=== PATIENT | female | born 1965 | race Caucasian/White ===

== ENCOUNTER → 2020-03-16 10:25 | Outpatient (CLI) | payer BC | END | disposition home or self-care (01) | LOC: D.RAD 10:25 | PROVIDERS: ATTEND Nurse Practitioner Family | DX: M25.511 Pain in right shoulder (principal) ==

== ENCOUNTER 2020-08-26 13:14 | Emergency (ER) | payer BC ==
[~2020-08-26] VITALS: Ht 170.2 cm; Wt 118.2 kg
[~2020-08-26 13:14] MED LIST: LISINOPRIL10 MG PO; LOVENOX40 MG/0.4 SC; NORMODYNE / TR100 MG PO; NORVASC10 MG PO
[2020-08-26 13:17] VITALS: BP 132/71; Ht 170.2 cm; Wt 118.2 kg
[2020-08-26 13:57] LABS: BASOPHILS 0.6 % (0-2); EOSINOPHILS 5.5 % (0-7); HEMATOCRIT 38.6 % (36.0-48.0); HEMOGLOBIN 12.2 g/dL (12-16); IMMATURE GRANULOCYTES 0.5 % (0-5); LYMPHOCYTE ABS# 2.95 10x3/uL (1.18-3.74); MCH 29.8 pg (26.0-34.0); MCHC 31.6 g/dL (31.0-37.0); MCV 94.4 fL (80.0-100.0); MEAN PLATELET VOLUME 9.2 fL (7.4-10.4); MONOCYTES 7.6 % (2-11); NEUTROPHIL ABS# 9.08 10x3/uL (1.56-6.13); NEUTROPHILS 64.8 % (40-80); PLATELET COUNT 536 10x3/uL (130-400); RBC 4.09 10x6/uL (4.00-5.40); RDW 15.2 % (11.5-14.5)
[2020-08-26 14:06] LABS: CALC OSMOLALITY 278 mosm/kg (275-300); CALCIUM 10.5 mg/dL (8.5-10.1); CARBON DIOXIDE 27.4 mmol/L (21.0-32.0); CHLORIDE - SERUM 97 mmol/L (98-107); CREATININE - SERUM 0.7 mg/dL (0.6-1.3); GLUCOSE 153 mg/dL (74-106); POTASSIUM - SERUM 3.9 mmol/L (3.5-5.1); SODIUM 131 mmol/L (136-145); UREA NITROGEN 50 mg/dL (7-18); eGFR NON AFRICAN AMERICAN > 90 mL/min (90-120)
[2020-08-26 14:13] LABS: ALKALINE PHOSPHATASE 117 U/L (30-120); ALT (SGPT) 23 U/L (10-68); BILIRUBIN - TOTAL 0.29 mg/dL (0.2-1.3); PROTEIN - SERUM 7.6 g/dL (6.4-8.2)
[2020-08-26 19:39] LABS: BILIRUBIN NEGATIVE (NEGATIVE); KETONE NEGATIVE (NEGATIVE); NITRITE POSITIVE (NEGATIVE); UROBILINOGEN NORMAL mg/dL (< 2)
[2020-08-26 19:44] LABS: BACTERIA MANY HPF (NONE SEEN); SQUAMOUS EPITHELIAL 0-5 HPF (0-4); WHITE CELLS - URINE NONE SEEN HPF (0-4)
[2020-08-27] MEDS ORDERED: NORMODYNE / TR100 MG PEG (15:27)
[2020-08-27] MEDS ORDERED: HYDRALAZINE HC100 MG PEG (15:28)
[2020-08-27] MEDS ORDERED: LISINOPRIL10 MG PEG (15:28)
[2020-08-27] MEDS ORDERED: NORVASC10 MG (15:28)
[2020-08-27] MEDS ORDERED: XANAX0.5 MG PO (15:29)
[2020-08-27] MEDS ORDERED: GLUCOPHAGE500 MG PO (19:08)
[2020-08-27] MEDS ORDERED: HCTZ25 MG PO (19:11)
[2020-08-27] MEDS ORDERED: ZOFRAN4 MG PO (19:13)
[2020-08-27] MEDS ORDERED: NYSTATIN1 PWD TOPICAL (19:16)
[2020-08-27] MEDS ORDERED: TRAZODONE HCL50 MG PO (19:19)
== END 2020-08-26 19:33 | disposition home or self-care (01) ==
LOC: D.ER 13:14
PROVIDERS: Family Medicine
DX: L89.159 Pressure ulcer of sacral region, unspecified stage (principal); E11.9 Type 2 diabetes mellitus without complications; I50.9 Heart failure, unspecified; Z86.73 Personal history of transient ischemic attack (TIA), and cerebral infarction without residual deficits; M54.9 Dorsalgia, unspecified

== ENCOUNTER 2020-08-27 15:08 | Inpatient (IN) | payer BC ==
[~2020-08-27] VITALS: Ht 170.2 cm; Wt 107.5 kg
[2020-08-27] MEDS ORDERED: NORMODYNE / TR100 MG PEG (15:27)
[2020-08-27] MEDS ORDERED: LISINOPRIL10 MG PEG (15:28)
[2020-08-27] MEDS ORDERED: NORVASC10 MG (15:28)
[2020-08-27] MEDS ORDERED: HYDRALAZINE HC100 MG PEG (15:28)
[2020-08-27] MEDS ORDERED: XANAX0.5 MG PO (15:29)
[2020-08-27 15:43] LABS: BASOPHILS 0.3 % (0-2); EOSINOPHILS 3.1 % (0-7); HEMATOCRIT 41.7 % (36.0-48.0); HEMOGLOBIN 13.3 g/dL (12-16); IMMATURE GRANULOCYTES 0.3 % (0-5); LYMPHOCYTE ABS# 1.67 10x3/uL (1.18-3.74); LYMPHOCYTES 12.1 % (15-50); MCH 29.8 pg (26.0-34.0); MCHC 31.9 g/dL (31.0-37.0); MCV 93.5 fL (80.0-100.0); MEAN PLATELET VOLUME 9.1 fL (7.4-10.4); MONOCYTES 7.8 % (2-11); NEUTROPHIL ABS# 10.51 10x3/uL (1.56-6.13); NEUTROPHILS 76.4 % (40-80); PLATELET COUNT 565 10x3/uL (130-400); RBC 4.46 10x6/uL (4.00-5.40); RDW 15.1 % (11.5-14.5); WBC 13.8 10x3/uL (4.8-10.8)
[2020-08-27 15:49] LABS: ANION GAP 15.7 mmol/L (8-16); CALCIUM 10.5 mg/dL (8.5-10.1); CARBON DIOXIDE 26.1 mmol/L (21.0-32.0); CREATININE - SERUM 0.9 mg/dL (0.6-1.3); POTASSIUM - SERUM 3.8 mmol/L (3.5-5.1)
[2020-08-27 15:55] LABS: ALBUMIN 3.2 g/dL (3.4-5.0); BILIRUBIN - TOTAL 0.31 mg/dL (0.2-1.3); PROTEIN - SERUM 8.2 g/dL (6.4-8.2)
[2020-08-27 16:00] VITALS: BP 149/93
--- NOTE | 2020-08-27 16:00 | NUR ---
PT LYING IN BED MOANING AND CRYING IN PAIN. UPON VISUAL EXAM OF VAGINAL AREA, PT WAS NOTED TO HAVE YEAST-LIKE SUBSTANCE SURROUNDING HER VAGINA. PT STATED IT HAD BEEN AT LEAST TWO WEEKS SINCE THE NH SHE WAS DC'D FROM HAD PROVIDED PERICARE. PT'S LABIA AND URETHRA WERE A DEEP RED/INFLAMMED COLOR. PT C/O PAIN WITH LIGHT PALPATION. ER PROVIDER NOTIFIED. PT CAME IN WITH PABLO CATHETER IN PLACE. REMOVED PER ER PROVIDER ORDER AND REPLACED WITH 16 FR USING STERILE TECHNIQUE. PT WAS LEAKING AROUND THE CATHETER AFTER INFLATING WITH 10ML STERILE SALINE, NOTIFIED ER PROVIDER. VERBAL ORDER TO PLACE ADDITIONAL 10ML SALINE IN BALLOON. PT TOLERATED WELL AND STATED HER PAIN WAS BETTER AFTER ADDITIONAL SALINE WAS PLACED. URINE WAS YELLOW WITH A SIGNIFICANT AMOUNT OF SEDIMENT NOTED.
[2020-08-27 16:21] VITALS: BP 156/94
[2020-08-27 16:50] LABS: NITRITE POSITIVE (NEGATIVE)
[2020-08-27 16:51] LABS: BILIRUBIN NEGATIVE (NEGATIVE); KETONE NEGATIVE (NEGATIVE); UROBILINOGEN NORMAL mg/dL (< 2)
[2020-08-27 16:52] LABS: BACTERIA MANY HPF (NONE SEEN); SQUAMOUS EPITHELIAL OCC HPF (0-4)
--- NOTE | 2020-08-27 18:33 | NUR ---
PATIENT TO UNIT VIA BED AT THIS TIME. BED LOW POSITION, CALL LIGHT IN REACH. FREE FROM SIGNS OF DISTRESS, WILL CONTINUE TO MONITOR.
[2020-08-27] MEDS ORDERED: GLUCOPHAGE500 MG PO (19:08)
[2020-08-27] MEDS ORDERED: HCTZ25 MG PO (19:11)
[2020-08-27] MEDS ORDERED: ZOFRAN4 MG PO (19:13)
[2020-08-27] MEDS ORDERED: NYSTATIN1 PWD TOPICAL (19:16)
[2020-08-27] MEDS ORDERED: TRAZODONE HCL50 MG PO (19:19)
[2020-08-27 19:51] VITALS: BP 121/73
[2020-08-27 23:12] VITALS: BMI 37.2
--- NOTE | 2020-08-28 01:23 | NUR ---
pT ARRIVED TO UNIT JUST BEFORE THIS NURSE ARRIVED. PT IS A&O x4 AND C/O PAIN ON ROUNDING/REPORT. PRN MS WAS ADMINISTERED BE ORDER. PT HAS A PEG TUBE THAT IS PATENT AND HAS NO RESIDUAL. AUSCULTATED ABD FOR APPROPRIATE PLACEMENT AND SAME WAS VERIFIED BEFORE MEDICATION ADMINISTRATION. PT REQUIRES THICKENED LIQUIDS. DRESSING CHANGED TO WOUND ON RIGHT COCCYX THAT RESEMBLES MOISTURE ASSOCIATED SKIN BREAKDOWN. PTS SPOUSE IN ROOM AND ASSISTED WITH REVIEW OF MEDICATION. SCD'S AND TELE APPLIED PER ORDER. PT REQUESTING TO BE TURNED FROM AFFECTED SIDE EVERY 2 HOURS AND UNAFFECTED SIDE EVERY 1.5 HOURS. PT EDUCATION REGARDING WOUND CARE AND PROPER TURNING AND POSITIONING SCHEDULE. PT'S COLOSTOMY BAG HAD LOST THE CLIP APPLIANCE AND FLOOR SUPPLY WAS USED TO CHANGE SAME. PT C/O PAIN TO LT HAND IV AFTER MANIPULATING CELL PHONE AND MULTIPLE REACHING TASKS FOR BEDSIDE TABLE. PT IS UNABLE TO STAND AT ALL AND IS A TOTAL ASSIST. PABLO IS PATENT AND PT CONTINUED TO C/O "BLADDER SPASMS" WITH A YEAST SMELLING/LOOKING SUBSTANCE PUSHED OUT AROUND THE CATH WITH NURSE PRESENT AND DURING COMPLAINT. PT DOES C/O PAIN FREQUENTLY EVEN FOR SLIGHT MOVEMENTS AND OFTEN HOLLERS OUT OR MOANS FOR SAME. SPOUSE DID BRING IN PT CPAP SHE NEEDS THIS FOR "MOUTH BREATHING". [facility] HAVE CALLED WITH PASSCODE TO PT AND REQUESTING INFORMATION SINCE THE SHIFT BEGAN. CASKET COVERER UP TO VISIT PT IN ROOM THIS EVENING WELL. PT HAS BEEN TURNED AND REPOSITIONED X5 SINCE START OF SHIFT WITH MULTIPLE READJUSTMENTS WELL. PRN PYRIDIUM GIVEN AND EFF FOR RELIEF OF BLADDER SPASMS WITH NO FURTHER EPISODES OF YEAST AROUND THE CATH. PT'S PERIANAL AREA IS EXCORIATED AND SLIGHTLY "SHEERED" APPEARING. PT IS SETTLED AND RESTING IN BED AT THIS TIME.
[2020-08-28 01:38] LABS: CKMB 0.4 U/L (0.0-3.6); CREATINE KINASE 27 UL (21-215); TROPONIN-I < 0.017 ng/mL (0.000-0.060)
[2020-08-28 01:39] LABS: APTT 35.4 SECONDS (22.8-39.4); INR 1.14 (0.85-1.17); PROTIME 13.5 SECONDS (11.6-15.0)
[2020-08-28 04:44] VITALS: BP 134/65
[2020-08-28 05:04] LABS: BASOPHILS 0.6 % (0-2); EOSINOPHILS 5.5 % (0-7); HEMATOCRIT 37.8 % (36.0-48.0); HEMOGLOBIN 12.1 g/dL (12-16); IMMATURE GRANULOCYTES 0.3 % (0-5); LYMPHOCYTES 19.1 % (15-50); MCV 93.6 fL (80.0-100.0); MEAN PLATELET VOLUME 9.3 fL (7.4-10.4); MONOCYTES 6.8 % (2-11); NEUTROPHIL ABS# 8.52 10x3/uL (1.56-6.13); NEUTROPHILS 67.7 % (40-80); PLATELET COUNT 505 10x3/uL (130-400); RBC 4.04 10x6/uL (4.00-5.40); RDW 15.5 % (11.5-14.5); WBC 12.6 10x3/uL (4.8-10.8)
[2020-08-28 05:28] LABS: ALBUMIN 2.9 g/dL (3.4-5.0); ALKALINE PHOSPHATASE 118 U/L (30-120); ALT (SGPT) 22 U/L (10-68); BILIRUBIN - TOTAL 0.51 mg/dL (0.2-1.3); CALC OSMOLALITY 282 mosm/kg (275-300); CALCIUM 10.5 mg/dL (8.5-10.1); CARBON DIOXIDE 24.4 mmol/L (21.0-32.0); CHLORIDE - SERUM 101 mmol/L (98-107); CREATININE - SERUM 0.8 mg/dL (0.6-1.3); GLUCOSE 137 mg/dL (74-106); MAGNESIUM - SERUM 2.1 mg/dL (1.8-2.4); POTASSIUM - SERUM 3.4 mmol/L (3.5-5.1); PRO BNP 280 pg/mL (0-125); PROTEIN - SERUM 7.4 g/dL (6.4-8.2); SODIUM 137 mmol/L (136-145); UREA NITROGEN 33 mg/dL (7-18); eGFR NON AFRICAN AMERICAN 78 mL/min (90-120)
--- NOTE | 2020-08-28 07:29 | NUR ---
RECIEVED BEDSIDE REPORT. PATIENT RESTING. AROUSES TO VOICE. BED LOW POSITION, CALL LIGHT IN REACH. WILL CONTINUE TO MONITOR.
[2020-08-28 09:07] VITALS: BP 146/67
--- NOTE | 2020-08-28 10:30 | NUR ---
SPECIALTY MATTRESS PUT ON BED PER ORDERS.
[2020-08-28 12:48] VITALS: Ht 170.2 cm; Wt 107.5 kg
[2020-08-28 12:59] VITALS: BP 155/77
[2020-08-28 17:18] VITALS: BP 149/78
[2020-08-28 20:06] VITALS: BP 153/69
[2020-08-29 00:27] VITALS: BP 160/74
[2020-08-29 04:00] VITALS: BP 130/63
[2020-08-29 06:16] LABS: BASOPHILS 0.7 % (0-2); EOSINOPHILS 7.9 % (0-7); HEMOGLOBIN 11.4 g/dL (12-16); IMMATURE GRANULOCYTES 0.4 % (0-5); LYMPHOCYTE ABS# 2.16 10x3/uL (1.18-3.74); LYMPHOCYTES 20.8 % (15-50); MCH 29.6 pg (26.0-34.0); MCHC 31.7 g/dL (31.0-37.0); MCV 93.5 fL (80.0-100.0); MEAN PLATELET VOLUME 9.2 fL (7.4-10.4); MONOCYTES 10.7 % (2-11); NEUTROPHILS 59.5 % (40-80); PLATELET COUNT 480 10x3/uL (130-400); RBC 3.85 10x6/uL (4.00-5.40); RDW 15.3 % (11.5-14.5); WBC 10.4 10x3/uL (4.8-10.8)
[2020-08-29 06:28] LABS: ALBUMIN 2.9 g/dL (3.4-5.0); ALKALINE PHOSPHATASE 109 U/L (30-120); ALT (SGPT) 23 U/L (10-68); BILIRUBIN - TOTAL 0.39 mg/dL (0.2-1.3); CALCIUM 10.2 mg/dL (8.5-10.1); CARBON DIOXIDE 26.2 mmol/L (21.0-32.0); CHLORIDE - SERUM 104 mmol/L (98-107); CREATININE - SERUM 0.8 mg/dL (0.6-1.3); GLUCOSE 129 mg/dL (74-106); MAGNESIUM - SERUM 2.1 mg/dL (1.8-2.4); PROTEIN - SERUM 6.7 g/dL (6.4-8.2); SODIUM 138 mmol/L (136-145); eGFR NON AFRICAN AMERICAN 78 mL/min (90-120)
[2020-08-29 06:30] LABS: CALC OSMOLALITY 281 mosm/kg (275-300); POTASSIUM - SERUM 4.4 mmol/L (3.5-5.1); UREA NITROGEN 24 mg/dL (7-18)
[2020-08-29 08:12] VITALS: BP 136/84
--- NOTE | 2020-08-29 10:48 | NUR ---
0700 - RECEIVED PATIENT FROM OFFGOING NURSE LAYING ON RIGHT SIDE WITH NO S/SX OF DISTRESS. WILL CONTINUE TO MONITOR. 0800 - PT REQUESTING FOR MEDICATION TO CONTROL "ITCHING SO BAD I'M SHAKING." ZOFRAN AND XANAX GIVEN ORDERED.
[2020-08-29 12:24] VITALS: BP 130/66
--- NOTE | 2020-08-29 16:39 | NUR ---
OT NOTE: PT COMPLETED BED MOB WITH MIN A. PT COMPLETED SITTING AT EOB WITH CGA. 105-130 THANK YOU,CHRISTINA MARIA
[2020-08-29 17:04] VITALS: BP 157/53
[2020-08-29 20:18] VITALS: BP 146/55
--- NOTE | 2020-08-29 22:59 | NUR ---
REC'D. WALKING ROUNDS CHGE OF SHIFTIN BED LYING ON LEFT SIDE.PILLOW BETWEEN LEGS FOR COMFORT.PABLO PATENT AND DRAINING CLOUDY YELLOW URINE WITH WHITISH COLORED SEDIMENTS OBSERVED. DRSG DRY AND INTACT TO OLD TRACH SITE.GENERALIZED YEAST RASH OBSERVED OVER INTIRE BODY WITH CONTINUOUS ITCHING ALL DAY EVEN AFTER BENADRYL. WILL CONTINUE TO MONITOR FOR ANY CHGES AND FOLLOW CURRENT PLAN OF CARE.
[2020-08-30 00:29] VITALS: BP 131/62
[2020-08-30 04:00] VITALS: BP 124/68
[2020-08-30 06:58] LABS: BASOPHILS 0.8 % (0-2); EOSINOPHILS 9.7 % (0-7); HEMATOCRIT 34.6 % (36.0-48.0); HEMOGLOBIN 10.9 g/dL (12-16); IMMATURE GRANULOCYTES 0.5 % (0-5); LYMPHOCYTE ABS# 2.57 10x3/uL (1.18-3.74); LYMPHOCYTES 24.9 % (15-50); MCH 29.5 pg (26.0-34.0); MCHC 31.5 g/dL (31.0-37.0); MCV 93.5 fL (80.0-100.0); MONOCYTES 8.9 % (2-11); NEUTROPHIL ABS# 5.72 10x3/uL (1.56-6.13); NEUTROPHILS 55.2 % (40-80); PLATELET COUNT 480 10x3/uL (130-400); RDW 15.1 % (11.5-14.5); WBC 10.3 10x3/uL (4.8-10.8)
[2020-08-30 07:28] LABS: ALBUMIN 2.8 g/dL (3.4-5.0); ALKALINE PHOSPHATASE 100 U/L (30-120); ALT (SGPT) 24 U/L (10-68); CALC OSMOLALITY 278 mosm/kg (275-300); CALCIUM 9.9 mg/dL (8.5-10.1); CARBON DIOXIDE 25.6 mmol/L (21.0-32.0); CHLORIDE - SERUM 104 mmol/L (98-107); CREATININE - SERUM 0.8 mg/dL (0.6-1.3); GLUCOSE 109 mg/dL (74-106); MAGNESIUM - SERUM 1.9 mg/dL (1.8-2.4); POTASSIUM - SERUM 4.2 mmol/L (3.5-5.1); PROTEIN - SERUM 6.5 g/dL (6.4-8.2); SODIUM 138 mmol/L (136-145); UREA NITROGEN 19 mg/dL (7-18); eGFR NON AFRICAN AMERICAN 78 mL/min (90-120)
[2020-08-30 08:31] VITALS: BP 163/77
--- NOTE | 2020-08-30 12:37 | NUR ---
OT NOTE: PT LIEING ON SIDE; ABLE TO ROLL FROM SIDE TO SIDE WITH ONLY MIN ASSIST TODAY; MOD/MAX ASSIST WITH SUPINE TO SIT; SITTING TOLERANCE X APPROX 6 MIN. SIT TO STAND WITH MOD ASSIST X 2.. UNABLE TO STAND LONG PREVIOUS DAY. PT WAS ABLE TO STAND X 2 WHILE LINENS WERE CHANGED. PT REPORTED THAT HER CATHETER WAS LEAKING.. PT UNABLE TO TAKE SIDE STEPS AT EOB; PRACTICED SIT TO SUPINE AND PT WAS ABLE TO PERFORM WITH ONLY MIN ASSIST WITH LE MGMT. MAX X 2 TO REPOSITION IN BED. PT ABLE TO PERFORM SIMPLE GROOMING TASKS WITH SET UP; EXT ASSIST WITH REMAINDER OF ADLS. JASPREET VILLASENOR, OTR/L [phone]
[2020-08-30 12:52] VITALS: BP 144/67
--- NOTE | 2020-08-30 13:01 | NUR ---
Nutrition follow-up: Pt upset due to getting a chicken wrap last night for dinner with tomatoes; pt reports to me she is deathly allergic to tomatoes. Apologized to patient and informed TREY Art Director who will follow-up with [facility] staff. However, pt reports the food has been good and her appetite is improving. Diet order: Consistent CHO with Glucerna Juan TID Wt: 236# Labs reviewed; glucose under good control RDN follow-up: 09/04/20
--- NOTE | 2020-08-30 14:53 | NUR ---
OT NOTE: PT REQUIRED MIN-MOD A FOR SUPINE TO SIT. PT HAD C/O OF B SHOULDER PAIN. NURSING AWARE. PT COMPLETED SIT TO STAND WITH MIN-MOD A. PT REQUIRED MAX A FOR LB HYGIENE TASKS. [phone] THANK YOU,CHRISTINA MARIA
[2020-08-30 16:58] VITALS: BP 130/76
[2020-08-30 20:00] VITALS: BP 143/67
--- NOTE | 2020-08-30 20:00 | NUR ---
ALERT RESTING IN AIR BED REPOSITIONED FOR COMFORT, SEE SHIFT ASSESSMENT, CALL LIGHT IN REACH
--- NOTE | 2020-08-30 22:00 | NUR ---
WET TO DRY DRESSING CHANGED TO COCCYX, TOLERATED WELL, REPOSITIONED
[2020-08-31 05:50] LABS: EOSINOPHILS 9.6 % (0-7); HEMATOCRIT 35.1 % (36.0-48.0); HEMOGLOBIN 11.2 g/dL (12-16); IMMATURE GRANULOCYTES 0.3 % (0-5); LYMPHOCYTE ABS# 1.99 10x3/uL (1.18-3.74); LYMPHOCYTES 21.9 % (15-50); MCH 29.6 pg (26.0-34.0); MCHC 31.9 g/dL (31.0-37.0); MCV 92.9 fL (80.0-100.0); MEAN PLATELET VOLUME 8.9 fL (7.4-10.4); MONOCYTES 9.2 % (2-11); NEUTROPHIL ABS# 5.26 10x3/uL (1.56-6.13); PLATELET COUNT 474 10x3/uL (130-400); RBC 3.78 10x6/uL (4.00-5.40); RDW 14.8 % (11.5-14.5); WBC 9.1 10x3/uL (4.8-10.8)
[2020-08-31 06:25] LABS: ALBUMIN 2.9 g/dL (3.4-5.0); ALKALINE PHOSPHATASE 101 U/L (30-120); ALT (SGPT) 24 U/L (10-68); BILIRUBIN - TOTAL 0.31 mg/dL (0.2-1.3); CALC OSMOLALITY 279 mosm/kg (275-300); CALCIUM 10.3 mg/dL (8.5-10.1); CARBON DIOXIDE 26.2 mmol/L (21.0-32.0); CHLORIDE - SERUM 103 mmol/L (98-107); CREATININE - SERUM 0.8 mg/dL (0.6-1.3); GLUCOSE 129 mg/dL (74-106); MAGNESIUM - SERUM 1.9 mg/dL (1.8-2.4); POTASSIUM - SERUM 3.9 mmol/L (3.5-5.1); PROTEIN - SERUM 7.1 g/dL (6.4-8.2); SODIUM 138 mmol/L (136-145); UREA NITROGEN 17 mg/dL (7-18); eGFR NON AFRICAN AMERICAN 78 mL/min (90-120)
[2020-08-31 08:45] VITALS: BP 152/79
--- NOTE | 2020-08-31 08:45 | MORECARE ---
CASE MANAGEMENT DISCHARGE SUMMARY PATIENT: JENNIFER OMALLEY UNIT: [id number] ADM DATE: 08/27/20 AGE: 54 : 61 SEX: F ROOM/BED: D.2204 AUTHOR: UZAIR SAENZ PHYSICIAN: REFERRING PHYSICIAN: PREET NEWMAN MD DATE OF SERVICE: 08/31/20 Discharge Plan Patient Name: JENNIFER OMALLEY [facility] [facility] 1965 Planned Disposition: [facility] Facility Anticipated Discharge Date: Discharge Date: Expected LOS: Initial Reviewer: [email or web address] Initial Review Date: 08/27/2020 Generated: 08/31/20 9:45 am Comments DCP- Discharge Planning Updated by [email or web address]: Polly Ronquillo on 08/31/20 7:[address] LATE ENTRY- 08/30/20 @ 1344 CM attempted to see patient, but she was sleeping. I called her spouse and left a voicemail CM will try again at a later time Patient Name: JENNIFER OMALLEY Page [phone] at 0845 All edits/amendments must be made on the electronic document DICTATION DATE: 08/31/20844 EXECUTIVE OFFICE MANAGER: ASHLEY 08/31/20844 RPT#: [id number] DC DATE: STATUS: ADM IN [facility] [address] [place] [address] END OF REPORT
[2020-08-31 12:18] VITALS: BP 132/75
--- NOTE | 2020-08-31 14:28 | NUR ---
OT NOTE: PT PERFORMED WELL TODAY. BED MOB IMPROVE TO MOD ASSIST LEVEL FOR SUPINE TO SIT; EOB SITTING WITH GOOD BALANCE; PT ABLE TO PERFORM UE/LE EXS WHILE SITTING ON SIDE OF BED. 3 SIT TO STANDS TO IMPROVE STRENGTH AND FUNCTIONAL ENDURANCE. PT REQUIRED USE OF WALKER AND MOD ASSIST X 2.. TOLERATED STANDING AT LEAST 30 SECS ON EACH TRIAL. PT ABLE TO WASH HANDS AND FACE WITH WASH CLOTH; ABLE TO SET UP HER TRAY AND OPEN HER WATER WITHOUT ASSIST TODAY. JASPREET VILLASENOR, OTR/L [phone]
--- NOTE | 2020-08-31 14:46 | MORECARE ---
CASE MANAGEMENT DISCHARGE SUMMARY PATIENT: JENNIFER OMALLEY UNIT: [id number] ADM DATE: 08/27/20 AGE: 54 : 61 SEX: F ROOM/BED: D.2204 AUTHOR: UZAIR SAENZ PHYSICIAN: REFERRING PHYSICIAN: PREET NEWMAN MD DATE OF SERVICE: 08/31/20 Discharge Plan Patient Name: JENNIFER OMALLEY [facility] [facility] 1965 Planned Disposition: [facility] Facility Anticipated Discharge Date: Discharge Date: Expected LOS: Initial Reviewer: [email or web address] Initial Review Date: 08/27/2020 Generated: 08/31/20 3:45 pm Comments DCP- Discharge Planning Updated by [id number]: Polly Ronquillo on 08/31/20 7:[address] LATE ENTRY- 08/30/20 @ 1344 CM attempted to see patient, but she was sleeping. I called her spouse and left a voicemail CM will try again at a later time External Providers [place] [facility] [place] Contact Date: Service Request Date: Service Type: Resolution: Reviewer: Comments: Last DP export: 08/31/20 7:45 a Patient Name: JENNIFER OMALLEY Page [phone] at 1446 All edits/amendments must be made on the electronic document DICTATION DATE: 08/31/20 1446 STAGE HAND: ASHLEY 08/31/20 1446 RPT#: [id number] DC DATE: STATUS: ADM IN [place] [address] [place] [address] END OF REPORT
--- NOTE | 2020-08-31 15:07 | MORECARE ---
CASE MANAGEMENT DISCHARGE SUMMARY PATIENT: JENNIFER OMALLEY UNIT: [id number] ADM DATE: 08/27/20 AGE: 54 : 61 SEX: F ROOM/BED: D.2204 AUTHOR: UZAIR SAENZ PHYSICIAN: REFERRING PHYSICIAN: PREET NEWMAN MD DATE OF SERVICE: 08/31/20 Discharge Plan Patient Name: JENNIFER OMALLEY [facility] [facility] 1965 Planned Disposition: Jail Facility Anticipated Discharge Date: Discharge Date: Expected LOS: Initial Reviewer: [email or web address] Initial Review Date: 08/27/2020 Generated: 08/31/20 4:06 pm Comments DCP- Discharge Planning Updated by [email or web address]: Polly Ronquillo on 08/31/20 7:[address] LATE ENTRY- 08/30/20 @ 1344 CM attempted to see patient, but she was sleeping. I called her spouse and left a voicemail CM will try again at a later time DCPIA - Discharge Planning Initial Assessment Updated by [email or web address]: Polly Ronquillo on 08/31/20 3:00 pm * Is the patient Alert and Oriented? Yes * P[facility] * [facility] * Preadmission Environment Jail Facility * Facility Name [facility] * ADLs Total Dependent * Equipment CPAP Hospital Bed * List name and contact numbers for known caregivers / representatives who currently or will assist patient after discharge: YAHAIRA OMALLEY [phone] * Verbal permission to speak to the caregivers and representatives has been obtained from the patient. N/A * Additional services required to return to the preadmission environment? Yes * Can the patient safely return to the preadmission environment? Yes * Has this patient been hospitalized within the prior 30 days at any hospital? No Last DP export: 08/31/20 1:46 p Patient Name: JENNIFER OMALLEY Page [phone] at 1504 All edits/amendments must be made on the electronic document DICTATION DATE: 08/31/20 1506 ROTOFORMER BACKTENDER: ASHLEY 08/31/20 1506 RPT#: [id number] DC DATE: STATUS: ADM IN [facility] [address] [place] [address] END OF REPORT
--- NOTE | 2020-08-31 15:21 | MORECARE ---
CASE MANAGEMENT DISCHARGE SUMMARY PATIENT: JENNIFER OMALLEY UNIT: [id number] ADM DATE: 08/27/20 AGE: 54 : 61 SEX: F ROOM/BED: D.2204 AUTHOR: DANY,DOC PHYSICIAN: REFERRING PHYSICIAN: PREET NEWMAN MD DATE OF SERVICE: 08/31/20 Discharge Plan Patient Name: JENNIFER OMALLEY [facility]:[place] : 1965 Planned Disposition: [facility] Facility Anticipated Discharge Date: Discharge Date: Expected LOS: Initial Reviewer: [email or web address] Initial Review Date: 08/27/2020 Generated: 08/31/20 4:20 pm Comments DCP- Discharge Planning Updated by [email or web address]: Polly Ronquillo on 08/31/20 2:[address] Patient Name: JENNIFER OMALLEY Admission Status: ER Accout number: [id number] Admission Date: 08-27-2020 : 1965 Admission Diagnosis:PRESSURE ULCER OF SACRAL REGION, UNSPECIFIED STAGE Attending: PREET MATTHEW Current LOS: 4 Anticipated DC Date: Planned Disposition: [facility] Facility Primary Insurance: [employer] [place] Discharge Planning Comments: CM met with patient to discuss dc planning. She was a skilled patient from [facility] and does not want to go back there and has requested to go to [facility]. I have sent the referral to them and will await their decision. BHASKAR signed and place in the chart. She has her home CPAP at the bedside. CM to follow and assist as needed Front Desk Supervisor: Polly Ronquillo DCP- Discharge Planning Updated by [email or web address]: Polly Ronquillo on 08/31/20 7:[address] LATE ENTRY- 08/30/20 @ 1344 CM attempted to see patient, but she was sleeping. I called her spouse and left a voicemail CM will try again at a later time DCPIA - Discharge Planning Initial Assessment Updated by [email or web address]: Polly Ronquillo on 08/31/20 3:00 pm * Is the patient Alert and Oriented? Yes * PCP [facility] * Pharmacy [facility] [address] * Preadmission Environment [facility] Facility * Facility Name [facility] * ADLs Total Dependent * Equipment CPAP Hospital Bed * List name and contact numbers for known caregivers / representatives who currently or will assist patient after discharge: YAHAIRA OMALLEY [phone] * Verbal permission to speak to the caregivers and representatives has been obtained from the patient. N/A * Additional services required to return to the preadmission environment? Yes * Can the patient safely return to the preadmission environment? Yes * Has this patient been hospitalized within the prior 30 days at any hospital? No Coverage Notice Reviewer: [id number] Jennifer Ronquillo Notice Issued Date-Time: 08/31/2020 14:50 Notice Type: Patient Choice Letter Notice Delivered To: Patient Relationship to Patient: Global Compensation Analyst Name: Delivery Method: HAND - Hand Delivered Nikole Days: Prior Verbal Notification: Recipient Understood Notice: Yes Recipient Signature: Yes Med Rec Note Co-signed by Attending: Coverage Notice Comment: [email or web address] for [facility] DP export: 08/31/20 2:07 p Patient Name: JENNIFER OMALLEY Page [phone] at 1521 All edits/amendments must be made on the electronic document DICTATION DATE: 08/31/20 1520 RUG TOUCH UP PAINTER: ASHLEY 08/31/20 1520 RPT#: [id number] DC DATE: STATUS: ADM IN [facility] [address] [place] [address] END OF REPORT
[2020-08-31 16:07] VITALS: BP 143/53
--- NOTE | 2020-08-31 16:52 | NUR ---
REPOSITIONED AND ASSIST WITH TRAY SETUP. PATIENT IS WITHOUT CHANGE. CONT PLAN OF CARE
--- NOTE | 2020-08-31 18:45 | NUR ---
COLOSTOMY WAFER AND BAG CHANGED AGAIN. SKIN CLEANED AMD PREPPED WITH CAVALON. PASTE AND POWDER USED TO SECURE WAFER IN PLACE.
--- NOTE | 2020-08-31 19:06 | NUR ---
RECEIVED REPORT, ASSUMED CARE, BREATHING EVEN UNLABORED, CALL LIGHT IN REACH, BED LOWEST POSITION, DENIES NEEDS, NO S/S OF DISTRESS NOTED, ENCOURAGED PT TO NOTIFY STAFF OF ANY NEEDS
[2020-09-01 01:56] VITALS: BP 112/70
--- NOTE | 2020-09-01 02:37 | NUR ---
I have reviewed this patient and I concur with the Shift Assessment completed by the Licensed Practical Nurse today this shift.
[2020-09-01 05:17] LABS: BASOPHILS 0.7 % (0-2); EOSINOPHILS 7.9 % (0-7); HEMATOCRIT 35.4 % (36.0-48.0); HEMOGLOBIN 11.2 g/dL (12-16); IMMATURE GRANULOCYTES 0.3 % (0-5); LYMPHOCYTE ABS# 1.93 10x3/uL (1.18-3.74); LYMPHOCYTES 21.5 % (15-50); MCH 29.4 pg (26.0-34.0); MCHC 31.6 g/dL (31.0-37.0); MCV 92.9 fL (80.0-100.0); MEAN PLATELET VOLUME 9.1 fL (7.4-10.4); NEUTROPHIL ABS# 5.27 10x3/uL (1.56-6.13); NEUTROPHILS 58.6 % (40-80); PLATELET COUNT 497 10x3/uL (130-400); RBC 3.81 10x6/uL (4.00-5.40); RDW 14.8 % (11.5-14.5)
[2020-09-01 05:38] LABS: ALBUMIN 2.9 g/dL (3.4-5.0); ALKALINE PHOSPHATASE 96 U/L (30-120); ALT (SGPT) 26 U/L (10-68); BILIRUBIN - TOTAL 0.21 mg/dL (0.2-1.3); CALC OSMOLALITY 276 mosm/kg (275-300); CALCIUM 10.4 mg/dL (8.5-10.1); CARBON DIOXIDE 26.6 mmol/L (21.0-32.0); CHLORIDE - SERUM 103 mmol/L (98-107); CREATININE - SERUM 0.8 mg/dL (0.6-1.3); GLUCOSE 159 mg/dL (74-106); MAGNESIUM - SERUM 1.8 mg/dL (1.8-2.4); POTASSIUM - SERUM 3.4 mmol/L (3.5-5.1); PROTEIN - SERUM 6.9 g/dL (6.4-8.2); SODIUM 137 mmol/L (136-145); UREA NITROGEN 13 mg/dL (7-18); eGFR NON AFRICAN AMERICAN 78 mL/min (90-120)
[2020-09-01 07:47] VITALS: BP 145/62
--- NOTE | 2020-09-01 07:47 | NUR ---
RESTING IN BED, NO DISTRESS NOTED, IV INFUSING,CONT TO MONITOR SUGARS
[2020-09-01 11:53] VITALS: BP 125/51
[2020-09-01 16:08] LABS: AEROBE ID Final report (()); RESULT 1 Proteus mirabilis (())
[2020-09-01 17:20] VITALS: BP 141/72
--- NOTE | 2020-09-01 19:10 | NUR ---
RECEIVED REPORT, ASSUMED CARE, BREATHING EVEN UNLABORED, CALL LIGHT IN REACH, BED LOWEST POSITION, DENIES NEEDS, NO S/S OF DISTRESS NOTED, ENCOURAGED PT TO NOTIFY STAFF OF ANY NEEDS, FAMILY AT BEDSIDE
[2020-09-02 04:00] VITALS: BP 126/66
[2020-09-02 05:32] LABS: EOSINOPHILS 8.2 % (0-7); HEMATOCRIT 36.1 % (36.0-48.0); HEMOGLOBIN 11.4 g/dL (12-16); IMMATURE GRANULOCYTES 0.3 % (0-5); LYMPHOCYTE ABS# 2.53 10x3/uL (1.18-3.74); LYMPHOCYTES 26.4 % (15-50); MCH 29.5 pg (26.0-34.0); MCHC 31.6 g/dL (31.0-37.0); MCV 93.3 fL (80.0-100.0); MEAN PLATELET VOLUME 9.2 fL (7.4-10.4); MONOCYTES 9.3 % (2-11); NEUTROPHIL ABS# 5.25 10x3/uL (1.56-6.13); NEUTROPHILS 54.8 % (40-80); PLATELET COUNT 482 10x3/uL (130-400); RBC 3.87 10x6/uL (4.00-5.40); RDW 14.9 % (11.5-14.5); WBC 9.6 10x3/uL (4.8-10.8)
[2020-09-02 05:54] LABS: ALKALINE PHOSPHATASE 93 U/L (30-120); ALT (SGPT) 27 U/L (10-68); BILIRUBIN - TOTAL 0.25 mg/dL (0.2-1.3); CALC OSMOLALITY 272 mosm/kg (275-300); CALCIUM 9.9 mg/dL (8.5-10.1); CARBON DIOXIDE 25.1 mmol/L (21.0-32.0); CHLORIDE - SERUM 103 mmol/L (98-107); CREATININE - SERUM 0.8 mg/dL (0.6-1.3); GLUCOSE 119 mg/dL (74-106); PROTEIN - SERUM 6.7 g/dL (6.4-8.2); SODIUM 136 mmol/L (136-145); UREA NITROGEN 12 mg/dL (7-18); eGFR NON AFRICAN AMERICAN 78 mL/min (90-120)
[2020-09-02 05:59] LABS: POTASSIUM - SERUM 4.1 mmol/L (3.5-5.1)
[2020-09-02 09:30] VITALS: BP 137/72
[2020-09-02 13:05] VITALS: BP 134/65
[2020-09-02 17:02] VITALS: BP 160/77
--- NOTE | 2020-09-02 17:29 | NUR ---
PT CONT TO RING FREQUENTLY, PT ABLE TO DO MORE FOR HERSELF THAN SHE WILL DO, CONT TO TURN AND POSITION AND PROVIDE NEEDED CARE
--- NOTE | 2020-09-02 19:29 | NUR ---
PATIENT RESTING IN BED WITH NO S/S OF DISTRESS. BROUGHT PATIENT A SNACK AND WATER PER HER REQUEST. PATIENT DENIES OTHER NEEDS AT THIS TIME. BED IN LOWEST POSITION AND CALL LIGHT IN REACH. ENCOURAGED PATIENT TO CALL WITH NEEDS.
[2020-09-02 20:00] VITALS: BP 154/80
--- NOTE | 2020-09-02 20:52 | NUR ---
ADMINISTERED MEDS PER ORDERS. PATIENT TRINA WELL. ENCOURAGED TO CALL WITH NEEDS.
[2020-09-03] VITALS: BP 141/78
[2020-09-03 04:00] VITALS: BP 138/65
[2020-09-03 06:40] LABS: ALBUMIN 2.9 g/dL (3.4-5.0); ALKALINE PHOSPHATASE 83 U/L (30-120); ALT (SGPT) 29 U/L (10-68); BILIRUBIN - TOTAL 0.18 mg/dL (0.2-1.3); CALC OSMOLALITY 274 mosm/kg (275-300); CARBON DIOXIDE 25.1 mmol/L (21.0-32.0); CHLORIDE - SERUM 104 mmol/L (98-107); CREATININE - SERUM 0.8 mg/dL (0.6-1.3); GLUCOSE 134 mg/dL (74-106); MAGNESIUM - SERUM 1.8 mg/dL (1.8-2.4); POTASSIUM - SERUM 3.7 mmol/L (3.5-5.1); PROTEIN - SERUM 6.9 g/dL (6.4-8.2); SODIUM 136 mmol/L (136-145); UREA NITROGEN 15 mg/dL (7-18); eGFR NON AFRICAN AMERICAN 78 mL/min (90-120)
[2020-09-03 06:49] LABS: BASOPHILS 0.9 % (0-2); HEMATOCRIT 36.3 % (36.0-48.0); HEMOGLOBIN 11.4 g/dL (12-16); IMMATURE GRANULOCYTES 0.5 % (0-5); LYMPHOCYTE ABS# 2.27 10x3/uL (1.18-3.74); LYMPHOCYTES 24.6 % (15-50); MCH 29.4 pg (26.0-34.0); MCHC 31.4 g/dL (31.0-37.0); MCV 93.6 fL (80.0-100.0); MEAN PLATELET VOLUME 9.1 fL (7.4-10.4); MONOCYTES 9.4 % (2-11); NEUTROPHIL ABS# 5.32 10x3/uL (1.56-6.13); NEUTROPHILS 57.6 % (40-80); PLATELET COUNT 492 10x3/uL (130-400); RBC 3.88 10x6/uL (4.00-5.40); RDW 15.1 % (11.5-14.5); WBC 9.2 10x3/uL (4.8-10.8)
[2020-09-03 07:49] VITALS: BP 141/66
--- NOTE | 2020-09-03 09:36 | MORECARE ---
CASE MANAGEMENT DISCHARGE SUMMARY PATIENT: JENNIFER OMALLEY UNIT: [id number] ADM DATE: 08/27/20 AGE: 54 : 61 SEX: F ROOM/BED: D.2204 AUTHOR: DANYDOC PHYSICIAN: REFERRING PHYSICIAN: PREET NEWMAN MD DATE OF SERVICE: 09/03/20 Discharge Plan Patient Name: JENNIFER OMALLEY Facility: [facility]:[place] : 1965 Planned Disposition: Long Term Facility Anticipated Discharge Date: Discharge Date: Expected LOS: Initial Reviewer: [email or web address] Initial Review Date: 08/27/2020 Generated: 09/03/20 10:36 am Comments DCP- Discharge Planning Updated by [id number]: Polly Ronquillo on 09/03/20 7:[address] CALLED [facility] TO CHECK THE STATUS OF THE REFERRAL ANA MARÍA STATED THAT THEY ARE MEETING THIS AM ABOUT HER AND WILL CALL ME BACK AFTER THE MEETING DCP- Discharge Planning Updated by [email or web address]: Polly Ronquillo on 08/31/20 1:[address] Patient Name: JENNIFER OMALLEY Admission Status: ER Accout number: [id number] Admission Date: 08-27-2020 : 1965 Admission Diagnosis:PRESSURE ULCER OF SACRAL REGION, UNSPECIFIED STAGE Attending: PREET MATTHEW Current LOS: 4 Anticipated DC Date: Planned Disposition: Long Term Facility Primary [facility] [employer] [facility] Discharge Planning Comments: CM met with patient to discuss dc planning. She was a skilled patient from the [facility] and does not want to go back there and has requested to go to [facility] nursing. I have sent the referral to them and will await their decision. BHASKAR signed and place in the chart. She has her home CPAP at the bedside. CM to follow and assist as needed Industrial Manufacturing Technician: Polly Ronquillo DCP- Discharge Planning Updated by [email or web address]: Polly Ronquillo on 08/31/20 6:[address] LATE ENTRY- 08/30/20 @ 1344 CM attempted to see patient, but she was sleeping. I called her spouse and left a voicemail CM will try again at a later time DCPIA - Discharge Planning Initial Assessment Updated by [email or web address]: Polly Ronquillo on 08/31/20 3:00 pm * Is the patient Alert and Oriented? Yes * PCP [facility] * Pharmacy [facility] [address] * Preadmission Environment Long Term Facility * Facility Name [facility] * ADLs Total Dependent * Equipment CPAP Hospital Bed * List name and contact numbers for known caregivers / representatives who currently or will assist patient after discharge: YAHAIRA OMALLEY [phone] * Verbal permission to speak to the caregivers and representatives has been obtained from the patient. N/A * Additional services required to return to the preadmission environment? Yes * Can the patient safely return to the preadmission environment? Yes * Has this patient been hospitalized within the prior 30 days at any hospital? No Coverage Notice Reviewer: [id number] - Polly Ronquillo Notice Issued Date-Time: 08/31/2020 14:50 Notice Type: Patient Choice Letter Notice Delivered To: Patient Relationship to Patient: Jointer Operator Name: Delivery Method: HAND - Hand Delivered Nikole Days: Prior Verbal Notification: Recipient Understood Notice: Yes Recipient Signature: Yes Med Rec Note Co-signed by Attending: Coverage Notice Comment: [email or web address] for [facility] nursing [facility] DP export: 08/31/20 1:21 p Patient Name: JENNIFER OMALLEY Page [phone] at 0936 All edits/amendments must be made on the electronic document DICTATION DATE: 09/03/20935 FEATHER BONER: ASHLEY 09/03/20935 RPT#: [id number] DC DATE: STATUS: ADM IN [facility] [address] [place] [address] END OF REPORT
--- NOTE | 2020-09-03 11:39 | MORECARE ---
CASE MANAGEMENT DISCHARGE SUMMARY PATIENT: JENNIFER OMALLEY UNIT: [id number] ADM DATE: 08/27/20 AGE: 54 : 61 SEX: F ROOM/BED: D.2204 AUTHOR: DANY,DOC PHYSICIAN: REFERRING PHYSICIAN: PREET NEWMAN MD DATE OF SERVICE: 09/03/20 Discharge Plan Patient Name: JENNIFER OMALLEY Facility: [facility]:[place] : 1965 Planned Disposition: Halfway Facility Anticipated Discharge Date: Discharge Date: Expected LOS: Initial Reviewer: [email or web address] Initial Review Date: 08/27/2020 Generated: 09/03/20 12:38 pm Comments DCP- Discharge Planning Updated by [email or web address]: Polly Ronquillo on 09/03/20 9:[address] [facility] CALLED AND STATED THAT THEY WOULD NOT BE ABLE TO TAKE HER OR MEET HER NEEDS WILL SPEAK TO PATIENT ABOUT OTHER PLANS DCP- Discharge Planning Updated by [email or web address]: Polly Ronquillo on 09/03/20 7:[address] CALLED [facility] TO CHECK THE STATUS OF THE REFERRAL ANA MARÍA STATED THAT THEY ARE MEETING THIS AM ABOUT HER AND WILL CALL ME BACK AFTER THE MEETING DCP- Discharge Planning Updated by [email or web address]: Polly Ronquillo on 08/31/20 1:[address] Patient Name: JENNIFER OMALLEY Admission Status: ER Accout number: [id number] Admission Date: 08-27-2020 : 1965 Admission Diagnosis:PRESSURE ULCER OF SACRAL REGION, UNSPECIFIED STAGE Attending: PREET MATTHEW Current LOS: 4 Anticipated DC Date: Planned Disposition: Halfway Facility Primary Insurance: [employer] [place] PPO Discharge Planning Comments: CM met with patient to discuss dc planning. She was a skilled patient from the [facility] and does not want to go back there and has requested to go to [facility]. I have sent the referral to them and will await their decision. BHASKAR signed and place in the chart. She has her home CPAP at the bedside. CM to follow and assist as needed Design Checker: Polly Ronquillo DCP- Discharge Planning Updated by [email or web address]: Polly Ronquillo on 08/31/20 6:[address] LATE ENTRY- 3/11/21 @ 1344 CM attempted to see patient, but she was sleeping. I called her spouse and left a voicemail CM will try again at a later time DCPIA - Discharge Planning Initial Assessment Updated by [email or web address]: Polly Ronquillo on 08/31/20 3:00 pm * Is the patient Alert and Oriented? Yes * PCP [facility] * Pharmacy [facility] [place] * Preadmission Environment Halfway Facility * [facility] Name [facility] * ADLs Total Dependent * Equipment CPAP Hospital Bed * List name and contact numbers for known caregivers / representatives who currently or will assist patient after discharge: YAHAIRA OMALLEY [phone] * Verbal permission to speak to the caregivers and representatives has been obtained from the patient. N/A * Additional services required to return to the preadmission environment? Yes * Can the patient safely return to the preadmission environment? Yes * Has this patient been hospitalized within the prior 30 days at any hospital? No Coverage Notice Reviewer: [id number] - Polly Ronquillo Notice Issued Date-Time: 08/31/2020 14:50 Notice Type: Patient Choice Letter Notice Delivered To: Patient Relationship to Patient: Loan Auditor Name: Delivery Method: HAND - Hand Delivered Nikole Days: Prior Verbal Notification: Recipient Understood Notice: Yes Recipient Signature: Yes Med Rec Note Co-signed by Attending: Coverage Notice Comment: [email or web address] for [facility] nursing [facility] DP export: 09/03/20 7:36 a Patient Name: JENNIFER OMALLEY Page [phone] at 1139 All edits/amendments must be made on the electronic document DICTATION DATE: 09/03/20 113 TRAFFIC CONTROL SIGNALER: ASHLEY 09/03/20 1139 RPT#: [id number] DC DATE: STATUS: ADM IN [facility] [address] [place] [address] END OF REPORT
--- NOTE | 2020-09-03 11:47 | MORECARE ---
CASE MANAGEMENT DISCHARGE SUMMARY PATIENT: JENNIFER OMALLEY UNIT: [id number] ADM DATE: 08/27/20 AGE: 54 : 61 SEX: F ROOM/BED: D.2204 AUTHOR: DANY,DOC PHYSICIAN: REFERRING PHYSICIAN: PREET NEWMAN MD DATE OF SERVICE: 09/03/20 Discharge Plan Patient Name: JENNIFER OMALLEY Facility: [facility]:[place] : 1965 Planned Disposition: Halfway Facility Anticipated Discharge Date: Discharge Date: Expected LOS: Initial Reviewer: [email or web address] Initial Review Date: 08/27/2020 Generated: 09/03/20 12:47 pm Comments DCP- Discharge Planning Updated by [email or web address]: Polly Ronquillo on 09/03/20 9:[address] [facility] CALLED AND STATED THAT THEY WOULD NOT BE ABLE TO TAKE HER OR MEET HER NEEDS WILL SPEAK TO PATIENT ABOUT OTHER PLANS DCP- Discharge Planning Updated by [email or web address]: Polly Ronquillo on 09/03/20 7:[address] CALLED [facility] TO CHECK THE STATUS OF THE REFERRAL ANA MARÍA STATED THAT THEY ARE MEETING THIS AM ABOUT HER AND WILL CALL ME BACK AFTER THE MEETING DCP- Discharge Planning Updated by [email or web address]: Polly Ronquillo on 08/31/20 1:[address] Patient Name: JENNIFER OMALLEY Admission Status: ER Accout number: [id number] Admission Date: 08-27-2020 : 1965 Admission Diagnosis:PRESSURE ULCER OF SACRAL REGION, UNSPECIFIED STAGE Attending: PREET MATTHEW Current LOS: 4 Anticipated DC Date: Planned Disposition: Halfway Facility Primary Insurance: [employer] [place] PPO Discharge Planning Comments: CM met with patient to discuss dc planning. She was a skilled patient from the [facility] and does not want to go back there and has requested to go to [facility]. I have sent the referral to them and will await their decision. BHASKAR signed and place in the chart. She has her home CPAP at the bedside. CM to follow and assist as needed Staffing Analyst: Polly Ronquillo DCP- Discharge Planning Updated by [email or web address]: Polly Ronquillo on 08/31/20 6:[address] LATE ENTRY- 3/11/21 @ 1344 CM attempted to see patient, but she was sleeping. I called her spouse and left a voicemail CM will try again at a later time DCPIA - Discharge Planning Initial Assessment Updated by [email or web address]: Polly Ronquillo on 08/31/20 3:00 pm * Is the patient Alert and Oriented? Yes * PCP [facility] * Pharmacy [facility] [place] * Preadmission Environment Halfway Facility * Facility Name [facility] * ADLs Total Dependent * Equipment CPAP Hospital Bed * List name and contact numbers for known caregivers / representatives who currently or will assist patient after discharge: YAHAIRA OMALLEY [phone] * Verbal permission to speak to the caregivers and representatives has been obtained from the patient. N/A * Additional services required to return to the preadmission environment? Yes * Can the patient safely return to the preadmission environment? Yes * Has this patient been hospitalized within the prior 30 days at any hospital? No External Providers External Provider: [facility] Contact Date: Service Request Date: Service Type: Resolution: Reviewer: Comments: Coverage Notice Reviewer: [id number] - Polly Ronquillo Notice Issued Date-Time: 08/31/2020 14:50 Notice Type: Patient Choice Letter Notice Delivered To: Patient Relationship to Patient: Salesforce Specialist Name: Delivery Method: HAND - Hand Delivered Nikole Days: Prior Verbal Notification: Recipient Understood Notice: Yes Recipient Signature: Yes Med Rec Note Co-signed by Attending: Coverage Notice Comment: [email or web address] for [facility] DP export: 09/03/20 9:39 a Patient Name: JENNIFER OMALLEY Page [id number] at 1147 All edits/amendments must be made on the electronic document DICTATION DATE: 09/03/20 1147 HAND FOLDER: ASHLEY 09/03/20 1147 RPT#: [id number] DC DATE: STATUS: ADM IN [facility] [address] [place] [address] END OF REPORT
--- NOTE | 2020-09-03 11:56 | MORECARE ---
CASE MANAGEMENT DISCHARGE SUMMARY PATIENT: JENNIFER OMALLEY UNIT: [id number] ADM DATE: 08/27/20 AGE: 54 : 61 SEX: F ROOM/BED: D.2204 AUTHOR: DANY,DOC PHYSICIAN: REFERRING PHYSICIAN: PREET NEWMAN MD DATE OF SERVICE: 09/03/20 Discharge Plan Patient Name: JENNIFER OMALLEY Facility: [facility]:[place] : 1965 Planned Disposition: Custodial Facility Anticipated Discharge Date: Discharge Date: Expected LOS: Initial Reviewer: [email or web address] Initial Review Date: 08/27/2020 Generated: 09/03/20 12:55 pm Comments DCP- Discharge Planning Updated by [email or web address]: Polly Ronquillo on 09/03/20 9:[address] [facility] CALLED AND STATED THAT THEY WOULD NOT BE ABLE TO TAKE HER OR MEET HER NEEDS WILL SPEAK TO PATIENT ABOUT OTHER PLANS DCP- Discharge Planning Updated by [email or web address]: Polly Ronquillo on 09/03/20 7:[address] CALLED [facility] TO CHECK THE STATUS OF THE REFERRAL ANA MARÍA STATED THAT THEY ARE MEETING THIS AM ABOUT HER AND WILL CALL ME BACK AFTER THE MEETING DCP- Discharge Planning Updated by [email or web address]: Polly Ronquillo on 08/31/20 1:[address] Patient Name: JENNIFER OMALLEY Admission Status: ER Accout number: [id number] Admission Date: 08-27-2020 : 1965 Admission Diagnosis:PRESSURE ULCER OF SACRAL REGION, UNSPECIFIED STAGE Attending: PREET MATTHEW Current LOS: 4 Anticipated DC Date: Planned Disposition: Custodial Facility Primary Insurance: [employer] [place] PPO Discharge Planning Comments: CM met with patient to discuss dc planning. She was a skilled patient from the [facility] and does not want to go back there and has requested to go to [facility]. I have sent the referral to them and will await their decision. BHASKAR signed and place in the chart. She has her home CPAP at the bedside. CM to follow and assist as needed Human Resources Advisor: Polly Ronquillo DCP- Discharge Planning Updated by [email or web address]: Polly Ronquillo on 08/31/20 6:[address] LATE ENTRY- 3/11/21 @ 1344 CM attempted to see patient, but she was sleeping. I called her spouse and left a voicemail CM will try again at a later time DCPIA - Discharge Planning Initial Assessment Updated by [email or web address]: Polly Ronquillo on 08/31/20 3:00 pm * Is the patient Alert and Oriented? Yes * PCP [facility] * Pharmacy [facility] [place] * Preadmission Environment Custodial Facility * Facility Name [facility] * ADLs Total Dependent * Equipment CPAP Hospital Bed * List name and contact numbers for known caregivers / representatives who currently or will assist patient after discharge: YAHAIRA OMALLEY [phone] * Verbal permission to speak to the caregivers and representatives has been obtained from the patient. N/A * Additional services required to return to the preadmission environment? Yes * Can the patient safely return to the preadmission environment? Yes * Has this patient been hospitalized within the prior 30 days at any hospital? No Coverage Notice Reviewer: [id number] - Polly Ronquillo Notice Issued Date-Time: 08/31/2020 14:50 Notice Type: Patient Choice Letter Notice Delivered To: Patient Relationship to Patient: Marketing Pr Intern Name: Delivery Method: HAND - Hand Delivered Nikole Days: Prior Verbal Notification: Recipient Understood Notice: Yes Recipient Signature: Yes Med Rec Note Co-signed by Attending: Coverage Notice Comment: bhaskar for [facility] nursing [facility] DP export: 09/03/20 9:47 a Patient Name: JENNIFER OMALLEY Page [phone] at 1156 All edits/amendments must be made on the electronic document DICTATION DATE: 09/03/20 1155 WIND FARM OPERATIONS MANAGER: ASHLEY 09/03/20 1155 RPT#: [id number] DC DATE: STATUS: ADM IN [facility] [address] [place] [address] END OF REPORT
--- NOTE | 2020-09-03 12:03 | MORECARE ---
CASE MANAGEMENT DISCHARGE SUMMARY PATIENT: JENNIFER OMALLEY UNIT: [id number] ADM DATE: 08/27/20 AGE: 54 : 61 SEX: F ROOM/BED: D.2204 AUTHOR: DANY,DOC PHYSICIAN: REFERRING PHYSICIAN: PREET NEWMAN MD DATE OF SERVICE: 09/03/20 Discharge Plan Patient Name: JENNIFER OMALLEY Facility: [facility]:[place] : 1965 Planned Disposition: Intermediate Facility Anticipated Discharge Date: Discharge Date: Expected LOS: Initial Reviewer: [email or web address] Initial Review Date: 08/27/2020 Generated: 09/03/20 1:02 pm Comments DCP- Discharge Planning Updated by [email or web address]: Polly Ronquillo on 09/03/20 9:[address] SPOKE WITH PATIENT ABOUT [facility] NOT ACCEPTING HER. SHE ASKED ABOUT HER EMERGENT DISABILITY, I EXPLAINED TO HER THAT I DO NOT DO THAT AND SHE OR HER USLAINE MADRIGAL DNEED TO FOLLOW UP WITH WHOEVER THEY SUBMITTED THE FORM WITH I CALLED [facility] WITH [facility] TO SEE WHAT OR WHY SHE COULDN'T OR WOULDN'T GO BACK THERE, SHE STATED THAT SHE WAS NOT SURE, BUT SHE KNEW THAT SHE WAS A NO READMIT. I HAVE FAXED THE PATIENT'S FACESHEET TO [facility] TO SEE IF SHE HAS ANY INPATIENT BENEFITS I THINK I AM NOT GETTING THE FULL STORY FROM THE PATIENT, I WILL TRY TO REACH OUT TO HER TO SEE IF HE CAN TELL ME ANYTHING DCP- Discharge Planning Updated by [email or web address]: Polly Ronquillo on 09/03/20 9:[address] [facility] CALLED AND STATED THAT THEY WOULD NOT BE ABLE TO TAKE HER OR MEET HER NEEDS WILL SPEAK TO PATIENT ABOUT OTHER PLANS DCP- Discharge Planning Updated by [email or web address]: Polly Ronquillo on 09/03/20 7:[address] CALLED [facility] TO CHECK THE STATUS OF THE REFERRAL ANA MARÍA STATED THAT THEY ARE MEETING THIS AM ABOUT HER AND WILL CALL ME BACK AFTER THE MEETING DCP- Discharge Planning Updated by [email or web address]: Polly Ronquillo on 08/31/20 1:[address] Patient Name: JENNIFER OMALLEY Admission Status: ER Accout number: [id number] Admission Date: 08-27-2020 : 1965 Admission Diagnosis:PRESSURE ULCER OF SACRAL REGION, UNSPECIFIED STAGE Attending: PREET MATTHEW Current LOS: 4 Anticipated DC Date: Planned Disposition: Intermediate Facility [facility] [employer] [facility] Discharge Planning Comments: CM met with patient to discuss dc planning. She was a skilled patient from the [facility] and does not want to go back there and has requested to go to [facility]. I have sent the referral to them and will await their decision. BHASKAR signed and place in the chart. She has her home CPAP at the bedside. CM to follow and assist as needed Labor Custodian: Polly Ronquillo DCP- Discharge Planning Updated by [email or web address]: Polly Ronquillo on 08/31/20 6:[address] LATE ENTRY- 08/30/20 @ 1344 CM attempted to see patient, but she was sleeping. I called her spouse and left a voicemail CM will try again at a later time DCPIA - Discharge Planning Initial Assessment Updated by [id number]: Polly Ronquillo on 08/31/20 3:00 pm * Is the patient Alert and Oriented? Yes * [facility]CP [facility] * [facility] * Preadmission Environment Intermediate Facility * Facility Name [facility] * ADLs Total Dependent * Equipment CPAP Hospital Bed * List name and contact numbers for known caregivers / representatives who currently or will assist patient after discharge: YAHAIRA OMALLEY [phone] * Verbal permission to speak to the caregivers and representatives has been obtained from the patient. N/A * Additional services required to return to the preadmission environment? Yes * Can the patient safely return to the preadmission environment? Yes * Has this patient been hospitalized within the prior 30 days at any hospital? No Coverage Notice Reviewer: [id number] - Polly Ronquillo Notice Issued Date-Time: 08/31/2020 14:50 Notice Type: Patient Choice Letter Notice Delivered To: Patient Relationship to Patient: Esl Professor Name: Delivery Method: HAND - Hand Delivered Nikole Days: Prior Verbal Notification: Recipient Understood Notice: Yes Recipient Signature: Yes Med Rec Note Co-signed by Attending: Coverage Notice Comment: bhaskar for [facility] Last DP export: 09/03/20 9:56 a Patient Name: JENNIFER OMALLEY Page [id number] at 1203 All edits/amendments must be made on the electronic document DICTATION DATE: 09/03/201202 CLINICAL ENGINEER: ASHLEY 09/03/201202 RPT#: [id number] DC DATE: STATUS: ADM IN [facility] [address] [place] [address] END OF REPORT
[2020-09-03 12:04] VITALS: BP 134/69
--- NOTE | 2020-09-03 14:22 | MORECARE ---
CASE MANAGEMENT DISCHARGE SUMMARY PATIENT: JENNIFER OMALLEY UNIT: [id number] ADM DATE: 08/27/20 AGE: 54 : 61 SEX: F ROOM/BED: D.2204 AUTHOR: DANY,DOC PHYSICIAN: REFERRING PHYSICIAN: PREET NEWMAN MD DATE OF SERVICE: 09/03/20 Discharge Plan Patient Name: JENNIFER OMALLEY Facility: [facility]:[place] : 1965 Planned Disposition: Long-Term Facility Anticipated Discharge Date: Discharge Date: Expected LOS: Initial Reviewer: [email or web address] Initial Review Date: 08/27/2020 Generated: 09/03/20 3:21 pm Comments DCP- Discharge Planning Updated by [id number]: Polly Ronquillo on 09/03/20 12:[address] REFERRAL SENT TO [facility] TO SEE IF SHE WOULD QUALIFY FOR INPATIENT REHAB DCP- Discharge Planning Updated by [email or web address]: Polly Ronquillo on 09/03/20 9:[address] SPOKE WITH PATIENT ABOUT [facility] NOT ACCEPTING HER. SHE ASKED ABOUT HER EMERGENT DISABILITY, I EXPLAINED TO HER THAT I DO NOT DO THAT AND SHE OR HER USBAND WOUL DNEED TO FOLLOW UP WITH WHOEVER THEY SUBMITTED THE FORM WITH I CALLED [facility] WITH [facility] TO SEE WHAT OR WHY SHE COULDN'T OR WOULDN'T GO BACK THERE, SHE STATED THAT SHE WAS NOT SURE, BUT SHE KNEW THAT SHE WAS A NO READMIT. I HAVE FAXED THE PATIENT'S FACESHEET TO [facility] TO SEE IF SHE HAS ANY INPATIENT BENEFITS I THINK I AM NOT GETTING THE FULL STORY FROM THE PATIENT, I WILL TRY TO REACH OUT TO HER TO SEE IF HE CAN TELL ME ANYTHING DCP- Discharge Planning Updated by [email or web address]: Polly Ronquillo on 09/03/20 9:[address] [facility] CALLED AND STATED THAT THEY WOULD NOT BE ABLE TO TAKE HER OR MEET HER NEEDS WILL SPEAK TO PATIENT ABOUT OTHER PLANS DCP- Discharge Planning Updated by [id number]: Polly Ronquillo on 09/03/20 7:[address] CALLED [facility] TO CHECK THE STATUS OF THE REFERRAL ANA MARÍA STATED THAT THEY ARE MEETING THIS AM ABOUT HER AND WILL CALL ME BACK AFTER THE MEETING DCP- Discharge Planning Updated by [email or web address]: Polly Ronquillo on 08/31/20 1:[address] Patient Name: JENNIFER OMALLEY Admission Status: ER Accout number: [id number] Admission Date: 08-27-2020 : 1965 Admission Diagnosis:PRESSURE ULCER OF SACRAL REGION, UNSPECIFIED STAGE Attending: PREET MATTHEW Current LOS: 4 Anticipated DC Date: Planned Disposition: Long-Term Facility Primary Insurance: [employer] [place] PPO Discharge Planning Comments: CM met with patient to discuss dc planning. She was a skilled patient from [facility] and does not want to go back there and has requested to go to [facility] nursing. I have sent the referral to them and will await their decision. ROSIE signed and place in the chart. She has her home CPAP at the bedside. CM to follow and assist as needed Dry Heat Cabinet Attendant: Polly Ronquillo DCP- Discharge Planning Updated by [email or web address]: Polly Ronquillo on 08/31/20 6:[address] LATE ENTRY- 08/30/20 @ 1344 CM attempted to see patient, but she was sleeping. I called her spouse and left a voicemail CM will try again at a later time DCPIA - Discharge Planning Initial Assessment Updated by [email or web address]: Polly Ronquillo on 08/31/20 3:00 pm * Is the patient Alert and Oriented? Yes * [facility]CP [facility] * [facility] * Preadmission Environment Long-Term Facility * Facility Name [facility] * ADLs Total Dependent * Equipment CPAP Hospital Bed * List name and contact numbers for known caregivers / representatives who currently or will assist patient after discharge: YAHAIRA OMALLEY [phone] * Verbal permission to speak to the caregivers and representatives has been obtained from the patient. N/A * Additional services required to return to the preadmission environment? Yes * Can the patient safely return to the preadmission environment? Yes * Has this patient been hospitalized within the prior 30 days at any hospital? No Coverage Notice Reviewer: [id number] - Polly Ronquillo Notice Issued Date-Time: 08/31/2020 14:50 Notice Type: Patient Choice Letter Notice Delivered To: Patient Relationship to Patient: Obiee Lead Developer Name: Delivery Method: HAND - Hand Delivered Nikole Days: Prior Verbal Notification: Recipient Understood Notice: Yes Recipient Signature: Yes Med Rec Note Co-signed by Attending: Coverage Notice Comment: rosie for [facility] nursing [facility] DP export: 09/03/20 10:03 a Patient Name: JENNIFER OMALLEY Page [phone] at 1422 All edits/amendments must be made on the electronic document DICTATION DATE: 09/03/201420 CREWMAN ARMOURED PERSONNEL CARRIER M113: ASHLEY 09/03/201420 RPT#: [id number] DC DATE: STATUS: ADM IN [facility] [address] [place] [address] END OF REPORT
[2020-09-03 16:51] VITALS: BP 151/71
[2020-09-03 21:33] VITALS: BP 151/82
[2020-09-04 00:39] VITALS: BP 117/63
[2020-09-04 05:15] VITALS: BP 136/80
[2020-09-04 05:55] LABS: BASOPHILS 1.1 % (0-2); EOSINOPHILS 7.6 % (0-7); HEMATOCRIT 36.5 % (36.0-48.0); HEMOGLOBIN 11.7 g/dL (12-16); IMMATURE GRANULOCYTES 0.3 % (0-5); LYMPHOCYTE ABS# 2.36 10x3/uL (1.18-3.74); LYMPHOCYTES 24.4 % (15-50); MCH 29.9 pg (26.0-34.0); MCHC 32.1 g/dL (31.0-37.0); MCV 93.4 fL (80.0-100.0); MEAN PLATELET VOLUME 8.9 fL (7.4-10.4); MONOCYTES 8.4 % (2-11); NEUTROPHIL ABS# 5.62 10x3/uL (1.56-6.13); NEUTROPHILS 58.2 % (40-80); PLATELET COUNT 470 10x3/uL (130-400); RBC 3.91 10x6/uL (4.00-5.40); RDW 14.9 % (11.5-14.5); WBC 9.7 10x3/uL (4.8-10.8)
[2020-09-04 06:07] LABS: ANION GAP 10.2 mmol/L (8-16); CALCIUM 10.3 mg/dL (8.5-10.1); CARBON DIOXIDE 26.6 mmol/L (21.0-32.0); CREATININE - SERUM 0.9 mg/dL (0.6-1.3); MAGNESIUM - SERUM 1.9 mg/dL (1.8-2.4); POTASSIUM - SERUM 3.8 mmol/L (3.5-5.1)
--- NOTE | 2020-09-04 07:29 | NUR ---
Patient had pain managed with the prescribed pain medication, dressing was changed, appeared to rest well between care.
[2020-09-04 07:43] VITALS: BP 155/64
[2020-09-04 12:35] VITALS: BP 166/84
--- NOTE | 2020-09-04 12:48 | NUR ---
Nutrition follow-up: Diet order: consistent CHO with Glucerna Shake TID PO intake continues to be 75-100% of meals Labs reviewed Wt: 237# +BM PO Intake good at this time RDN will reassess: 09/07/20
[2020-09-04] MEDS ORDERED: ROCEPHIN 1 GM/D51 G1 IV (13:09)
[2020-09-04] MEDS ORDERED: CLEOCIN HCL300 MG PO (13:09)
[2020-09-04] MEDS ORDERED: LEVSIN/ANASP0.125 MG PO (13:09)
[2020-09-04] MEDS ORDERED: FLORAJEN3 CAPS460 MG PO (13:10)
[2020-09-04] MEDS ORDERED: COLACE100 MG PO (13:10)
[2020-09-04] MEDS ORDERED: XANAX0.25 MG PO (13:10)
[2020-09-04] MEDS ORDERED: IPRAT-ALBUT 0.5-3 ML INH (13:10)
[2020-09-04] MEDS ORDERED: LOVENOX40 MG/0.4 SC (13:10)
[2020-09-04] MEDS ORDERED: ACETAMINOPHEN325 MG PO (13:10)
[2020-09-04] MEDS ORDERED: HYDROCODON-ACE1 EA10 PO (13:10)
[2020-09-04] MEDS ORDERED: MELATONIN 3 MG1 TAB PO (13:11)
[2020-09-04] MEDS ORDERED: OXYBUTYNIN CHLOR5 MG PO (13:11)
--- NOTE | 2020-09-04 14:46 | NUR ---
OT NOTE: PT SLOWLY IMPROVING DAILY. PRACTICED BED MOB INITIALLY WITH PT REQUIRING MIN ASSIST FOR SUPINE TO SIT. EOB SITTING BALANCE IS GOOD.. TOLERANCE IMPROVING (TOLERATED APPROX 15 MIN TODAY). PERFORMED UE/LE AROM EXS WITH MIN/MOD REST BREAKS; IMPROVED FUNCTIONAL USE AND STRENGTH NOTED IN B HANDS. SIT TO STAND WITH MOD ASSIST. PRACTICED SEVERAL TRIALS OF SIT TO SUPINE TO SIT. AT END OF TMT , PT WAS ABLE TO PERFORM WITHOUT ANY ASSISTANCE. JASPREET VILLASENOR, OTR/L [phone]
--- NOTE | 2020-09-04 15:28 | NUR ---
EVALUATION OF PT HOME CPAP. RESMED CPAP SETTINGS: 7-14 cmH2O. PT RECEIVING 7 cmH20 VIA CPAP.
--- NOTE | 2020-09-04 16:09 | NUR ---
PATIENT HAS BEEN ACCEPTED TO [facility], THEY WILL PICK HER UP VIA EMS PATIENT WILL BE CALLING HER SPOUSE TO LET HIM KNOW. SHE IS VERY EXCITED ABOUT REHAB CM TO FOLLOW AND ASSIST NEEDED
--- NOTE | 2020-09-04 17:53 | NUR ---
CALL [facility], GAVE REPORT TO SAMANTHA, ALL QUESTIONS ANSWERED, DISCHARGE INSTRUCTIONS REVIEWED WITH PT, IV REMOVED, TIP INTACT, PT LEFT VIA STRETCHER WITH EMS TO BE TRANSPORTED TO [facility], PT IN STABLE CONDITION, NO SIGNS OF DISTRESS
== END 2020-09-04 17:38 | DRG 698 ==
LOC: D.ER 15:08 → D.MS 17:42
PROVIDERS: Family Medicine; ADMIT Family Medicine Adult Medicine; ATTEND Family Medicine Adult Medicine
DX: T83.511A Infection and inflammatory reaction due to indwelling urethral catheter, initial encounter (principal); L89.154 Pressure ulcer of sacral region, stage 4; B37.41 Candidal cystitis and urethritis; I48.20 Chronic atrial fibrillation, unspecified; I50.32 Chronic diastolic (congestive) heart failure; Y84.6 Urinary catheterization as the cause of abnormal reaction of the patient, or of later complication, without mention of misadventure at the time of the procedure; E11.622 Type 2 diabetes mellitus with other skin ulcer; E11.65 Type 2 diabetes mellitus with hyperglycemia; I11.0 Hypertensive heart disease with heart failure; Z86.73 Personal history of transient ischemic attack (TIA), and cerebral infarction without residual deficits; Z87.01 Personal history of pneumonia (recurrent); E83.52 Hypercalcemia; G47.33 Obstructive sleep apnea (adult) (pediatric); I48.91 Unspecified atrial fibrillation